=== PATIENT | female | born 1990 | race Two or more races ===

== ENCOUNTER 2021-12-20 00:39 | Emergency (ER) | payer SELFPAY ==
[~2021-12-20] VITALS: Ht 160 cm; Wt 86.2 kg
[2021-12-20 01:13] VITALS: BP 147/94
[2021-12-20] MEDS ORDERED: ACETAMINOPHEN 500 MG TAB PO ONE (01:30)
== END 2021-12-20 03:19 | disposition home or self-care (01) ==
LOC: ER 00:39
DX: R51.9 Headache, unspecified (principal)

== ENCOUNTER 2023-10-17 04:50 | Emergency (ER) | payer MEDICAID ==
[~2023-10-17] VITALS: Ht 160 cm; Wt 84.7 kg
[2023-10-17 07:02] VITALS: BP 119/81; PULSE 89; RESP 16; TEMP 98.1; O2SAT 99
[2023-10-17] MEDS ORDERED: CEPH500C PO (07:58)
[2023-10-17] MEDS ORDERED: ACETAMINOPHEN 500 MG TAB PO ONE (08:00)
== END 2023-10-17 08:17 | disposition home or self-care (01) ==
LOC: ER 04:50
DX: S01.01XA Laceration without foreign body of scalp, initial encounter (principal); R51.9 Headache, unspecified; Z79.899 Other long term (current) drug therapy; W22.8XXA Striking against or struck by other objects, initial encounter; Y93.89 Activity, other specified; Y92.89 Other specified places as the place of occurrence of the external cause; Y99.8 Other external cause status
CPT/HCPCS: 12001; 70450